=== PATIENT | female | born 2000 | race Caucasian/White ===

== ENCOUNTER 2019-12-19 16:30 | Emergency (ER) | payer SELFPAY ==
--- NOTE | 2019-12-19 16:45 | Event Note ---
ED Screening Note ED Screening Note: 19 yo female 17 weeks and iron deficiency anemia presents with blurry vision headache chest pain malaise for one week. Just started iron one day ago. JAH 05/30/2020 This initial assessment/diagnostic orders/clinical plan/treatment(s) is/are subject to change based on patients health status, clinical progression and re- assessment by fellow clinical providers in the ED. Further treatment and workup at subsequent clinical providers discretion. Patient/guardian urged not to elope from the ED as their condition may be serious if not clinically assessed and managed. Initial orders include: labs
[2019-12-19 18:17] LABS: Basophils % (Auto) 0.5 % (0.0-1.8); Eosinophils # (Auto) 0.3 K/mm3 (0.0-0.4); Eosinophils % (Auto) 4.1 % (0.0-4.3); Hematocrit 40.4 % (30.3-42.9); Hemoglobin 12.9 gm/dl (10.1-14.3); Lymphocytes # (Auto) 1.5 K/mm3 (1.2-5.4); Lymphocytes % (Auto) 17.8 % (13.4-35.0); Mean Corpuscular HGB Conc 32 % (30-34); Mean Corpuscular Volume 73 fl (79-97); Monocytes # (Auto) 0.6 K/mm3 (0.0-0.8); Monocytes % (Auto) 7.6 % (0.0-7.3); Platelet Count 155 K/mm3 (140-440); Red Blood Count 5.52 M/mm3 (3.65-5.03); Red Cell Distribution Width 19.2 % (13.2-15.2)
[2019-12-19 18:41] LABS: Alanine Aminotransferase 25 units/L (7-56); Albumin 3.8 g/dL (3.9-5); BUN/Creatinine Ratio 18; Blood Urea Nitrogen 7 mg/dL (7-17); Calcium 9.6 mg/dL (8.4-10.2); Hemolysis Index 1
--- NOTE | 2019-12-19 23:57 | Emergency Department Report ---
ED General Adult HPI - General Chief complaint: Chest Pain Stated complaint: 17WKS PREG/CHEST PX/HEADACHE Time Seen by Provider: 12/19/19 23:26 Source: patient Mode of arrival: Ambulatory Limitations: No Limitations - History of Present Illness Initial comments: 19-year-old female with history of anxiety, currently 17 weeks , presents to ED with complaint of headache, blurred vision, chest pain, general malaise. Patient states she has been having these symptoms since before she was , however since being her symptoms has worsened, especially over the past week. She reports she was recently placed on iron pills. Patient reports her hemoglobin was normal, but her iron was low. Patient reports chest pain is intermittent, substernal, feels like tightness. She reports associated shortness of breath. She denies leg pain or swelling. She denies any abdominal pain. She denies any fever or cough. Patient states she does not believe that her symptoms are due to anxiety. Patient reports she previously took Celexa for her anxiety. OB: in [place], [place] -: week(s) (1) Location: head, eyes, chest Consistency: intermittent Improves with: none Worsens with: none Associated Symptoms: chest pain, headaches, malaise, shortness of breath. denies: cough, fever/chills, nausea/vomiting - Related Data Allergies Allergy/AdvReac Type Severity Reaction Status Date / Time No Known Allergies Allergy Unverified 12/19/19 16:34 ED Review of Systems ROS: Stated complaint: 17WKS PREG/CHEST PX/HEADACHE Other details as noted in HPI Comment: All other systems reviewed and negative Constitutional: denies: chills, fever Eyes: other (Reports blurry vision intermittently) Respiratory: shortness of breath. denies: cough Cardiovascular: chest pain, palpitations Gastrointestinal: denies: abdominal pain Musculoskeletal: other (Denies leg pain or swelling) Neurological: headache ED Past Medical Hx - Past Medical History Previous Medical History?: Yes Additional medical history: anemia - Surgical History Past Surgical History?: No - Social History Smoking Status: Never Smoker ED Physical Exam - General Limitations: No Limitations General appearance: alert, in no apparent distress - Head Head exam: Present: atraumatic - Eye Eye exam: Present: normal appearance, EOMI - ENT ENT exam: Present: mucous membranes moist - Neck Neck exam: Present: normal inspection - Respiratory Respiratory exam: Present: normal lung sounds bilaterally. Absent: respiratory distress - Cardiovascular Cardiovascular Exam: Present: regular rate, normal rhythm - GI/Abdominal GI/Abdominal exam: Present: soft. Absent: distended, tenderness - Extremities Exam Extremities exam: Present: normal inspection. Absent: pedal edema, calf tenderness - Neurological Exam Neurological exam: Present: alert, oriented X3, CN II-XII intact. Absent: motor sensory deficit - Psychiatric Psychiatric exam: Present: normal affect, normal mood - Skin Skin exam: Present: warm, dry, intact, normal color ED Course Vital Signs 12/19/19 12/19/19 12/19/19 16:34 16:43 23:32 Temperature 98.2 F 98.2 F 98.7 F Pulse Rate 122 H 122 H 87 Respiratory 20 18 18 Rate Blood Pressure 155/88 Blood Pressure 153/88 123/79 [Left] O2 Sat by Pulse 100 100 96 Oximetry 12/20/19 03:14 Temperature 97.9 F Pulse Rate 71 Respiratory 16 Rate Blood Pressure Blood Pressure 115/69 [Left] O2 Sat by Pulse 100 Oximetry - Reevaluation(s) Reevaluation #1: 12/19/19 23:57 Repeat vitals are normal. Patient states that in triage she was feeling anxious and states her blood pressure and heart rate were elevated due to her anxiety. However, patient states her symptoms are not her typical anxiety related symptoms. ED Medical Decision Making - Lab Data Result diagrams: 12/19/19 17:31 12/19/19 17:31 - EKG Data -: EKG Interpreted by Dc EKG shows normal: sinus rhythm, axis, intervals, QRS complexes, ST-T waves Rate: normal - EKG Data Interpretation: no acute changes - Radiology Data Radiology results: report reviewed, image reviewed - Medical Decision Making 19-year-old female with history of anxiety, currently 17 weeks , presents to ED with complaint of headache, blurred vision, chest pain, general malaise. Patient states she has been having these symptoms since before she was , however since being her symptoms has worsened, especially over the past week. EKG and troponin are normal. D-dimer elevated, so CTA chest was obtained, which is negative for PE or any other abnormalities. Patient does have history of anxiety and is currently off of her medication due to her . Symptoms could be related to anxiety. Vitals have normalized since initial presentation. Patient is in no respiratory distress, O2 sats are normal. Outpatient follow-up is advised. Return precautions given. - Differential Diagnosis anxiety, ACS, PE, anemia Critical care attestation.: If time is entered above; I have spent that time in minutes in the direct care of this critically ill patient, excluding procedure time. ED Disposition Clinical Impression: Chest pain Disposition: DC-01 TO HOME OR SELFCARE Is pt being admited?: No Condition: Stable Instructions: Chest Pain (ED) Referrals: PRIMARY CARE, [Primary Care Provider] - 3-5 Days Time of Disposition: 03:05
[2019-12-20 00:36] LABS: INR 0.92 (0.87-1.13)
[2019-12-20 00:37] LABS: Partial Thromboplastin Time 26.1 Sec. (24.2-36.6)
--- NOTE | 2019-12-20 01:03 | XRay Report ---
CHEST 1 VIEW INDICATION / CLINICAL INFORMATION: chest pain. COMPARISON: None available. FINDINGS: SUPPORT DEVICES: None. HEART / MEDIASTINUM: No significant abnormality. LUNGS / PLEURA: No significant pulmonary or pleural abnormality.. No pneumothorax. ADDITIONAL FINDINGS: No significant additional findings. IMPRESSION: 1. No acute findings. Signer Name: Parminder Donato MD Signed: 12/20/2019 12:58 AM Workstation Name: [id number]
--- NOTE | 2019-12-20 02:57 | Cat Scan Report ---
CTA of the chest with 3D Reconstruction Indication: ,chest pain Technique: TECHNIQUE: Axial CT images were obtained through the chest after injection of 100 cc of Omnipaque 350 IV contrast. 3 plane MIP reconstructions were produced. All CT scans at this location are performed using CT dose reduction for ALARA by means of automated exposure control. COMPARISON: None Automatic exposure control was utilized in an attempt to reduce radiation dose. Findings: Pulmonary arteries: The main pulmonary artery and right and left pulmonary artery branches fill satis factorily with contrast. No pulmonary embolus is seen. Lungs: The lungs are clear. Mediastinum: Heart size is normal. No adenopathy is seen. Aorta: Normal in diameter. No dissection seen within limits of this exam. Impression: No pulmonary embolus is seen Signer Name: Parminder Donato MD Signed: 12/20/2019 2:53 AM Workstation Name: [id number]
[2019-12-20 03:15] VITALS: BP 115/69
== END 2019-12-20 03:15 | disposition home or self-care (01) ==
LOC: ED 16:30
DX: O26.892 Other specified pregnancy related conditions, second trimester (principal); R51 Headache; H53.8 Other visual disturbances; R07.9 Chest pain, unspecified; Z3A.17 17 weeks gestation of pregnancy
CPT/HCPCS: 36415; 71045; 71275; 80053; 84484; 85025; 85379; 85610; 85730; 93005; 93010; 99284; Q9967

== ENCOUNTER 2021-06-20 21:45 | Emergency (ER) | payer MEDICAID ==
[2021-06-20 23:12] VITALS: BP 159/100
[2021-06-21 00:24] LABS: Basophils # (Auto) 0.1 K/mm3 (0.0-0.1); Basophils % (Auto) 0.7 % (0.0-1.8); Eosinophils # (Auto) 0.7 K/mm3 (0.0-0.4); Eosinophils % (Auto) 8.6 % (0.0-4.3); Hematocrit 44.6 % (30.3-42.9); Lymphocytes # (Auto) 2.4 K/mm3 (1.2-5.4); Lymphocytes % (Auto) 29.8 % (13.4-35.0); Mean Corpuscular HGB Conc 34 % (30-34); Mean Corpuscular Volume 85 fl (79-97); Monocytes # (Auto) 0.7 K/mm3 (0.0-0.8); Monocytes % (Auto) 8.7 % (0.0-7.3); Platelet Count 137 K/mm3 (140-440); Red Blood Count 5.23 M/mm3 (3.65-5.03); Red Cell Distribution Width 16.4 % (13.2-15.2)
[2021-06-21 07:17] LABS: Bilirubin,Urine NEG (Negative); Blood,Urine NEG (Negative); Color,Urine Yellow (Yellow); Mucus,Urine 1+ /HPF; Protein,Urine <15 mg/dL mg/dL (Negative); Urobilinogen,Urine < 2.0 mg/dL (<2.0)
[2021-06-21 07:19] LABS: HCG Qualitative,Urine Negative (Negative)
[2021-06-21] MEDS ORDERED: KETOROLAC 60 MG/2 ML INJ IM ONE (07:36)
--- NOTE | 2021-06-21 07:36 | Emergency Department Report ---
ED General Adult HPI - General Chief complaint: Vaginal Bleeding Stated complaint: BLEEDING SPOTTING EXTREME ABD PAIN Time Seen by Provider: 06/21/21 06:56 Source: patient Mode of arrival: Ambulatory Limitations: No Limitations - History of Present Illness Initial comments: Patient is 21 years old female 2 para 2. Patient presented to the ER co mplaining of abnormal vaginal spotting. Patient stated that she finished her. Few days ago. Patient is complaining of lower pelvic pain. Patient stated that pain has been going on and off since her first delivery. Patient stated that she was consulted with her OB doctor for this but they told her that it would go away by itself. Patient stated that last night he experienced more pain. She d enied any nausea or vomiting. She denied any vaginal discharge. Patient also denied any fever or chills. - Related Data Allergies Allergy/AdvReac Type Severity Reaction Status Date / Time No Known Allergies Allergy Verified 06/20/21 23:13 ED Review of Systems ROS: Stated complaint: BLEEDING SPOTTING EXTREME ABD PAIN Other details as noted in HPI Comment: All other systems reviewed and negative Constitutional: denies: chills, fever Respiratory: denies: cough, shortness of breath, SOB with exertion Cardiovascular: denies: chest pain, palpitations Gastrointestinal: abdominal pain. denies: nausea, vomiting, diarrhea Genitourinary: abnormal menses. denies: dysuria, hematuria, discharge Musculoskeletal: denies: back pain Neurological: denies: headache, weakness, numbness, paresthesias, confusion Psychiatric: denies: suicidal thoughts ED Past Medical Hx - Past Medical History Previous Medical History?: Yes Additional medical history: anemia, pre eclampsia, gestational DM - Surgical History Past Surgical History?: No - Social History Smoking Status: Never Smoker Substance Use Type: None ED Physical Exam - General Limitations: No Limitations General appearance: alert, in no apparent distress - Head Head exam: Present: atraumatic, normocephalic, normal inspection - Eye Eye exam: Present: normal appearance, PERRL - ENT ENT exam: Present: normal exam, normal orophraynx, mucous membranes moist - Neck Neck exam: Present: normal inspection, full ROM. Absent: tenderness, meningismus - Respiratory Respiratory exam: Present: normal lung sounds bilaterally - Cardiovascular Cardiovascular Exam: Present: regular rate, normal rhythm, normal heart sounds - GI/Abdominal GI/Abdominal exam: Present: soft, normal bowel sounds. Absent: distended, tenderness, guarding, rebound, rigid, organomegaly, mass, bruit, pulsatile mass, hernia - Extremities Exam Extremities exam: Present: normal inspection, full ROM, normal capillary refill. Absent: pedal edema, calf tenderness - Back Exam Back exam: Present: normal inspection, full ROM. Absent: CVA tenderness (R), CVA tenderness (L) - Neurological Exam Neurological exam: Present: alert, oriented X3, CN II-XII intact, normal gait, reflexes normal. Absent: motor sensory deficit - Psychiatric Psychiatric exam: Present: normal mood - Skin Skin exam: Present: warm, intact, normal color ED Course Vital Signs 06/20/21 23:00 Temperature 98.4 F Pulse Rate 91 H Respiratory 18 Rate Blood Pressure 159/100 [Left] O2 Sat by Pulse 97 Oximetry ED Medical Decision Making - Lab Data Result diagrams: 06/20/21 23:42 - Medical Decision Making Patient is 21 years old female 2 para 2. Patient presented to the ER complaining of abnormal vaginal spotting. Patient stated that she finished her. Few days ago. Patient is complaining of lower pelvic pain. Patient stated that pain has been going on and off since her first delivery. Patient stated that she was consulted with her OB doctor for this but they told her that it would go away by itself. Patient stated that last night he experienced more pain. She denied any nausea or vomiting. She denied any vaginal discharge. Patient also denied any fever or chills. Patient also stated that she had an ultrasound done BY her OB doctor and she was told that it was normal. Labs reviewed and is unremarkable. test is negative. Patient received Toradol in the ER and stated that it helped with her pain. Patient advised to follow-up with her lead sales consultant in the next 2 to 3 days and to return to the ER if she develop any new symptoms. Critical care attestation.: If time is entered above; I have spent that time in minutes in the direct care of this critically ill patient, excluding procedure time. ED Disposition Clinical Impression: Acute pelvic pain, female Disposition: HOME / SELF CARE / HOMELESS Is pt being admited?: No Condition: Stable Instructions: Pelvic Pain, Female, [id number] Referrals: NEIL FRANCO MD [Primary Care Provider] - 3-5 Days CAMILO AMEZCUA MD [Staff Physician] - 3-5 Days
== END 2021-06-21 08:36 | disposition home or self-care (01) ==
LOC: ED 21:45
DX: R10.2 Pelvic and perineal pain (principal)
CPT/HCPCS: 36415; 81001; 81025; 85025; 96372; 99283; J1885

== ENCOUNTER 2021-08-16 19:42 | Emergency (ER) | payer MEDICAID ==
[2021-08-16 20:27] VITALS: BP 140/95
[2021-08-16 21:38] LABS: Bilirubin,Urine NEG (Negative); Blood,Urine NEG (Negative); Color,Urine Yellow (Yellow); Mucus,Urine FEW /HPF; Protein,Urine <15 mg/dL mg/dL (Negative)
--- NOTE | 2021-08-16 22:41 | Emergency Department Report ---
ED Back Pain/Injury HPI - General Chief Complaint: Back Pain/Injury Stated Complaint: FEVER, BACK AND KNEE PAIN, HEADACHE Time Seen by Provider: 08/16/21 20:52 Source: patient Limitations: No Limitations - History of Present Illness MD Complaint: back pain -: Gradual Similar Symptoms Previously: No Place: home Radiation: none Severity: mild Quality: dull Improves With: none Worsens With: none Associated Symptoms: denies other symptoms. denies: chest pain, cough, fever/chills, constipation, seizure, shortness of breath, syncope - Related Data Previous Rx's Medication Instructions Recorded Last Taken Type Ketorolac [Toradol] 10 mg PO Q6H PRN #20 tablet 06/21/21 Unknown Rx metroNIDAZOLE [Flagyl] 500 mg PO Q12HR #14 tab 06/21/21 Unknown Rx Allergies Allergy/AdvReac Type Severity Reaction Status Date / Time No Known Allergies Allergy Verified 08/16/21 20:27 ED Review of Systems ROS: Stated complaint: FEVER, BACK AND KNEE PAIN, HEADACHE Other details as noted in HPI Comment: All other systems reviewed and negative ED Past Medical Hx - Past Medical History Previous Medical History?: No Additional medical history: anemia, pre eclampsia, gestational DM - Surgical History Past Surgical History?: No - Social History Smoking Status: Never Smoker - Medications Home Medications: Home Medications Medication Instructions Recorded Confirmed Last Taken Type Ketorolac [Toradol] 10 mg PO Q6H PRN #20 tablet 06/21/21 Unknown Rx metroNIDAZOLE [Flagyl] 500 mg PO Q12HR #14 tab 06/21/21 Unknown Rx ED Physical Exam - General Limitations: No Limitations General appearance: alert, in no apparent distress - Head Head exam: Present: atraumatic, normocephalic - Eye Eye exam: Present: normal appearance, PERRL, EOMI Pupils: Present: normal accommodation - ENT ENT exam: Present: normal exam, normal orophraynx, mucous membranes moist - Neck Neck exam: Present: normal inspection - Respiratory Respiratory exam: Present: normal lung sounds bilaterally. Absent: respiratory distress - Cardiovascular Cardiovascular Exam: Present: normal rhythm, tachycardia. Absent: systolic murmur, diastolic murmur, rubs, gallop - GI/Abdominal GI/Abdominal exam: Present: soft, normal bowel sounds - Extremities Exam Extremities exam: Present: normal inspection - Back Exam Back exam: Present: normal inspection - Neurological Exam Neurological exam: Present: alert, oriented X3 - Psychiatric Psychiatric exam: Present: normal affect, normal mood - Skin Skin exam: Present: warm, dry, intact, normal color. Absent: rash ED Course Vital Signs 08/16/21 20:23 Temperature 98.8 F Pulse Rate 137 H Respiratory 21 Rate Blood Pressure 140/95 O2 Sat by Pulse 99 Oximetry ED Medical Decision Making - Lab Data Result diagrams: 08/16/21 23:12 08/16/21 23:12 - EKG Data Rate: normal - EKG Data When compared to previous EKG there are: no significant change Interpretation: no acute changes - Radiology Data Radiology results: report reviewed [facility] [address] [place] [address] XRay Report Signed Patient: LEONEL SIMPSON MR#: [id number] : 2000 Acct:[id number] Age/Sex: 21 / F ADM Date: 08/16/21 Loc: ED Attending Dr: Ordering Physician: PHANI STERN Date of Service: 08/16/21 Procedure(s): XR chest routine 2V Accession Number(s): [id number] cc: PHANI STERN Fluoro Time In Minutes: CHEST 2 VIEWS INDICATION / CLINICAL INFORMATION: pain. COMPARISON: 12/20/2019 FINDINGS: SUPPORT DEVICES: None. HEART / MEDIASTINUM: No significant abnormality. LUNGS / PLEURA: No significant pulmonary or pleural abnormality. No pneumothorax. ADDITIONAL FINDINGS: No significant additional findings. IMPRESSION: 1. No acute findings. Signer Name: Antwan Diaz MD Signed: 08/16/2021 11:19 PM Workstation Name: [id number] Transcribed By: TL Dictated By: Antwan Diaz MD Electronically Authenticated By: Antwan Diaz MD Signed Date/Time: 08/16/212318 DD/ 18 TD/TT: Critical care attestation.: If time is entered above; I have spent that time in minutes in the direct care of this critically ill patient, excluding procedure time. ED Disposition Clinical Impression: Back pain Disposition: 07 LEFT AGAINST MEDICAL ADVICE Is pt being admited?: No Does the pt Need Aspirin: No Condition: Stable Referrals: PRIMARY CARE, [Primary Care Provider] - 3-5 Days
[2021-08-16] MEDS ORDERED: SODIUM CHLORIDE 0.9% 1000 ML 1,000 ML IV ONE (22:42)
--- NOTE | 2021-08-16 23:23 | XRay Report ---
CHEST 2 VIEWS INDICATION / CLINICAL INFORMATION: pain. COMPARISON: 12/20/2019 FINDINGS: SUPPORT DEVICES: None. HEART / MEDIASTINUM: No significant abnormality. LUNGS / PLEURA: No significant pulmonary or pleural abnormality. No pneumothorax. ADDITIONAL FINDINGS: No significant additional findings. IMPRESSION: 1. No acute findings. Signer Name: Antwan Diaz MD Signed: 08/16/2021 11:19 PM Workstation Name: [id number]
[2021-08-16 23:46] LABS: Basophils % (Auto) 0.3 % (0.0-1.8); Eosinophils # (Auto) 0.5 K/mm3 (0.0-0.4); Eosinophils % (Auto) 3.5 % (0.0-4.3); Hematocrit 44.6 % (30.3-42.9); Hemoglobin 14.9 gm/dl (10.1-14.3); Lymphocytes # (Auto) 2.1 K/mm3 (1.2-5.4); Mean Corpuscular HGB Conc 33 % (30-34); Mean Corpuscular Volume 83 fl (79-97); Monocytes # (Auto) 1.1 K/mm3 (0.0-0.8); Monocytes % (Auto) 7.1 % (0.0-7.3); Platelet Count 146 K/mm3 (140-440); Red Blood Count 5.35 M/mm3 (3.65-5.03); Red Cell Distribution Width 14.5 % (13.2-15.2)
[2021-08-17 00:02] LABS: Blood Urea Nitrogen 10 mg/dL (7-17); Calcium 9.8 mg/dL (8.4-10.2); Hemolysis Index 12
[2021-08-17 00:03] LABS: BUN/Creatinine Ratio 14
== END 2021-08-17 01:00 | disposition left against medical advice (07) ==
LOC: ED 19:42
DX: M54.9 Dorsalgia, unspecified (principal)
CPT/HCPCS: 36415; 71046; 80048; 81001; 85025; 99284; J7030; 99283